=== PATIENT | female | born 1980 | race Caucasian/White ===

== ENCOUNTER 2017-09-27 18:45 | Emergency (ER) | payer OTHER ==
[~2017-09-27] VITALS: Ht 162.6 cm; Wt 112.3 kg
[~2017-09-27 18:45] MED LIST: FLUOXETINE HCL20 MG PO; KEFLEX500 MG PO; MOTRIN IB200 MG PO; NAPROSYN500 MG PO; OMNICEF300 MG PO; PROZAC40 MG PO; TRAZODONE HCL100 MG PO
[2017-09-27] MEDS ORDERED: NAPROSYN500 MG PO (20:43)
[2017-09-27] MEDS ORDERED: VIBRAMYCIN100 MG PO (20:43)
[2017-09-27] MEDS ORDERED: BACTROBAN OINTM22 GM TP (20:44)
[2017-09-27 20:52] VITALS: BP 152/82
== END 2017-09-27 20:53 | disposition home or self-care (01) ==
LOC: EME 18:45 → EXP 18:45
DX: L03.211 Cellulitis of face (principal); L02.01 Cutaneous abscess of face; Z87.891 Personal history of nicotine dependence
CPT/HCPCS: 99281; 99283